=== PATIENT | female | born 1975 | race Caucasian/White ===

== ENCOUNTER 2016-07-25 19:46 | Emergency (ER) | payer BC ==
--- NOTE | 2016-07-25 20:33 | UC ---
Abdominal Pain Female HPI - HPI Summary HPI Summary: upper right abdomen pain for the past 2 weeks, insidious onset. No associated nausea or vomiting. Today, has an increase in pain after eating, and has felt unwell, low in energy , no fever. No vomiting, passes normal stools x 2. Bowel habit has been normal. NO fever, no recent illnesses. Did have a fall a couple of weeks ago while roller skating, but she believes that the pain began before that. - History of Current Complaint Chief Complaint: UCGI Stated Complaint: STOMACH PAIN Time Seen by Provider: 07/25/16 20:22 Hx Obtained From: Patient Hx Last Menstrual Period: Early Onset/Duration: Gradual Onset, Lasting Weeks - 2 Severity Initially: Moderate Severity Currently: Moderate Location: Discrete At: RUQ Radiates: No Character: Aching, Dull Aggravating Factor(s): Food Alleviating Factor(s): Position - worse with sitting. - Risk Factors Ectopic Risk Factor: IUD Use - just removed Mirena last year., Tubal Ligation Ovarian Torsion Risk Factor: Negative Allergies/Adverse Reactions: Allergies Allergy/AdvReac Type Severity Reaction Status Date / Time No Known Allergies Allergy Verified 07/25/16 20:18 PMH/Surg Hx/FS Hx/Imm Hx Previously Healthy: Yes - Surgical History Surgical History: Yes Surgery Procedure, Year, and Place: C-SECT X 3 [facility]; tubal ligation 10/2015 - Family History Known Family History: Positive: Other - no family history of gallbladder disease. 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: With Family Alcohol Use: Occasionally Substance Use Type: None Smoking Status (MU): Never Smoked Tobacco Review of Systems Constitutional: Negative Skin: Negative Eyes: Negative ENT: Negative Respiratory: Other - no recent illnesses. Cardiovascular: Negative Gastrointestinal: Abdominal Pain - some increase in indigestion, no meds used. Genitourinary: Negative Motor: Negative Neurovascular: Negative Musculoskeletal: Negative Neurological: Negative Psychological: Negative All Other Systems Reviewed And Are Negative: Yes Physical Exam Triage Information Reviewed: Yes Appearance: Well-Appearing, Thin Vital Signs: Initial Vital Signs Temp 99.3 F 07/25/16 20:09 Pulse 84 07/25/16 20:09 Resp 22 07/25/16 20:09 BP 130/87 07/25/16 20:09 Vital Signs Reviewed: Yes Eyes: Positive: Conjunctiva Clear ENT: Positive: Pharynx normal Dental Exam: Normal Neck: Positive: Supple, Nontender, No Lymphadenopathy Respiratory: Positive: Lungs clear, Normal breath sounds Cardiovascular: Positive: RRR, No Murmur Abdomen Description: Positive: Soft, Other: - tender lower margin of liver. Negative: No Organomegaly, CVA Tenderness (R), CVA Tenderness (L), Guarding Bowel Sounds: Positive: Present Musculoskeletal Exam: Normal Neurological Exam: Normal Psychological Exam: Normal Abd Pain Female Course/Dx - Course Course Of Treatment: continue acetaminophen or ibuprofen for pain. low fat diet. labs drawn to assess liver function - Differential Dx/Diagnosis Differential Diagnosis: Constipation, Ectopic , Gall Bladder Disease Provider Diagnoses: RUQ pain not yet diagnosed, most likely gallbladder disease. No acute abdomen. Discharge - Discharge Plan Condition: Stable Disposition: HOME Patient Education Materials: Biliary Colic (ED) Additional Instructions: The location and quality of your pain is suggestive of possible gallstones. Other alternative is that you have chest wall pain. The progression is more suggestive of gallbladder disease. Ensure that you are eating well and avoid high fat foods and fried foods. Liver function tests have been drawn today to look for abnormality. Please contact Dr. Hernandez on Wednesday to arrange an evaluation of your gallbladder and liver and to review the test results. The lab results will be available on the morning of 07/17/16; you will be called if results are abnormal , but you can also call for results.
[2016-07-25 20:38] VITALS: BP 130/87
[2016-07-26 12:52] LABS: Hematocrit 40 % (35-47); Hemoglobin 13.4 g/dl (12.0-16.0); Mean Corpuscular HGB Conc 33 g/dl (31-36); Mean Corpuscular Hemoglobin 29 pg (27-31); Mean Corpuscular Volume 87 fL (80-97); Mean Platelet Volume 9 um3 (7.4-10.4); Red Blood Count 4.64 10^6/ul (4.0-5.4); Red Cell Distribution Width 13 % (10.5-15); White Blood Count 8.5 10^3/ul (3.5-10.8)
[2016-07-26 12:58] LABS: Albumin 4.6 g/dL (3.2-5.2); BUN/Creatinine Ratio 18.5 (8-20); Calcium 9.5 mg/dL (8.6-10.3); EGFR African American 130.5 (>60); EGFR Non-African American 101.5 (>60); Globulin 2.1 g/dL (2-4); Potassium 3.4 mmol/L (3.5-5.0); Total Bilirubin 1.1 mg/dL (0.2-1.0); Total Protein 6.7 g/dL (6.4-8.9)
== END 2016-07-25 21:46 | disposition home or self-care (01) ==
LOC: UCCORT 19:46
DX: R10.11 Right upper quadrant pain (principal); Z32.02 Encounter for pregnancy test, result negative
CPT/HCPCS: 36415; 80053; 81025; 85025; 99211; G0463

== ENCOUNTER 2016-11-07 13:06 | Emergency (ER) | payer BC ==
[2016-11-07 13:15] VITALS: BP 122/82
--- NOTE | 2016-11-07 13:28 | UC ---
Respiratory Complaint HPI - HPI Summary HPI Summary: Patient states she has had a cough for about 10 days, currently c/o chest congestion with shortness of breath at times. No recent trauma, travel or OCP. Her children had cold last week and so did she but her cough persists and not gone yet so she came in . No fever. (+) wheeze and cough and hoarse voice [ End ] - History of Current Complaint Stated Complaint: COUGH Time Seen by Provider: 11/07/16 13:13 Hx Obtained From: Patient Hx Last Menstrual Period: Early ?: No Onset/Duration: Gradual Onset Timing: Constant Severity Initially: Moderate Severity Currently: Moderate Character: Cough: Nonproductive Aggravating Factors: Exertion Alleviating Factors: OTC Meds Associated Signs And Symptoms: Positive: Negative, Wheezing, URI, Nasal Congestion, Hoarseness, Sinus Discomfort. Negative: Fever - Risk Factors Pulmonary Embolism Risk Factors: Negative Cardiac Risk Factors: Negative Pseudomonas Risk Factors: Negative Tuberculosis Risk Factors: Negative - Allergies/Home Medications Allergies/Adverse Reactions: Allergies Allergy/AdvReac Type Severity Reaction Status Date / Time No Known Allergies Allergy Verified 07/25/16 20:18 PMH/Surg Hx/FS Hx/Imm Hx Previously Healthy: Yes Endocrine History Of: Denies: Diabetes Respiratory History Of: Denies: COPD GI/ History Of: Denies: Gastroesophageal Reflux Cancer History Of: Denies: Lung Cancer - Surgical History Surgical History: Yes Surgery Procedure, Year, and Place: C-SECT X 3 [facility]; tubal ligation 10/2015 - Family History Known Family History: Positive: Other - no family history of gallbladder disease. 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: With Family Alcohol Use: Occasionally Substance Use Type: None Smoking Status (MU): Never Smoked Tobacco Review of Systems Constitutional: Fatigue Skin: Negative Eyes: Negative ENT: Negative Respiratory: Cough, Other - wheeze Cardiovascular: Negative Gastrointestinal: Negative Genitourinary: Negative Motor: Negative Neurovascular: Negative Musculoskeletal: Negative Neurological: Negative Psychological: Negative All Other Systems Reviewed And Are Negative: Yes Physical Exam Triage Information Reviewed: Yes Appearance: Well-Appearing, No Pain Distress, Well-Nourished Vital Signs Reviewed: Yes Eye Exam: Normal ENT Exam: Normal Dental Exam: Normal Neck exam: Normal Neck: Positive: 1 Respiratory Exam: Normal Cardiovascular Exam: Normal Musculoskeletal Exam: Normal Neurological Exam: Normal Psychological Exam: Normal Skin Exam: Normal Respiratory Course/Dx - Course Course Of Treatment: appears viral at this time and will give albuterol inhaler for tessalon. and if sx persist then RTO / seek medical care. - Differential Dx/Diagnosis Differential Diagnosis/HQI/PQRI: Bronchitis, Lower Resp Infection, Sinusitis Provider Diagnoses: Viral URI Discharge - Discharge Plan Condition: Good Disposition: HOME Prescriptions: Albuterol Sulfate [Proair Respiclick] 1 puff IN Q4HR PRN #1 ml PRN Reason: Shortness Of Breath Benzonatate [Benzonatate 200 MG CAP] 200 mg PO TID #20 cap Patient Education Materials: Upper Respiratory Infection (ED) Referrals: Jaun Hernandez DO [Primary Care Provider] - 3 Days
== END 2016-11-07 13:41 | disposition home or self-care (01) ==
LOC: UCCORT 13:06
DX: J06.9 Acute upper respiratory infection, unspecified (principal)
CPT/HCPCS: 99212; G0463

== ENCOUNTER 2017-09-29 19:24 | Emergency (ER) | payer BC ==
[2017-09-29 21:44] VITALS: BP 129/75
--- NOTE | 2017-09-29 22:03 | UC ---
Skin Complaint HPI - HPI Summary HPI Summary: Pt c/o of sudden onset of burning, itchy skin on right mid upper back, that began on 09/24/17 an dnow has c/o of burning itchy, vessiculr rash that begins at right side mid upper back and extends to right mid sternum - History of Current Complaint Chief Complaint: UCSkin Time Seen by Provider: 09/29/17 21:58 Stated Complaint: SKIN COMPLAINT Hx Obtained From: Patient Hx Last Menstrual Period: 09/06/17 ?: No Onset/Duration: Gradual Onset, Lasting Days, Still Present, Worse Since - onset Skin Exposure Onset/Duration: Days Ago Timing: Constant Onset Severity: Mild Current Severity: Moderate Pain Intensity: 5 Location: Discrete Character: Pruritus, Redness, Raised, Painful Aggravating Factor(s): Touch Alleviating Factor(s): Nothing Associated Signs & Symptoms: Positive: Rash, Tenderness - Allergy/Home Medications Allergies/Adverse Reactions: Allergies Allergy/AdvReac Type Severity Reaction Status Date / Time No Known Allergies Allergy Verified 09/29/17 21:44 Review of Systems Constitutional: Negative Skin: Rash Eyes: Negative ENT: Negative Respiratory: Negative Cardiovascular: Negative Gastrointestinal: Negative Genitourinary: Negative Motor: Negative Neurovascular: Negative Musculoskeletal: Negative Neurological: Negative Psychological: Negative Is Patient Immunocompromised?: No All Other Systems Reviewed And Are Negative: Yes PMH/Surg Hx/FS Hx/Imm Hx Previously Healthy: Yes - Surgical History Surgical History: Yes Surgery Procedure, Year, and Place: C-SECT X 3 [facility]; tubal ligation 10/2015 - Family History Known Family History: Positive: Other - no family history of gallbladder disease. - Social History Occupation: Employed Full-time Lives: With Family Alcohol Use: Occasionally Substance Use Type: None Smoking Status (MU): Never Smoked Tobacco Have You Smoked in the Last Year: No Physical Exam Triage Information Reviewed: Yes Appearance: Well-Appearing Vital Signs: Initial Vital Signs Temp 98.6 F 09/29/17 21:38 Pulse 84 09/29/17 21:38 Resp 16 09/29/17 21:38 BP 129/75 09/29/17 21:38 Pulse Ox 100 09/29/17 21:38 Vital Signs Reviewed: Yes Eye Exam: Normal ENT Exam: Normal Neck exam: Normal Respiratory Exam: Normal Cardiovascular Exam: Normal Musculoskeletal Exam: Normal Neurological Exam: Normal Psychological Exam: Normal Skin: Positive: rashes - vessicular, along dermatome Course/Dx - Differential Diagnoses - Skin Complaint Differential Diagnoses: Varicella Zoster - Diagnoses Provider Diagnoses: shingles Discharge - Sign-Out/Discharge Documenting (check all that apply): Discharge - Discharge Plan Condition: Stable Disposition: HOME Prescriptions: ValACYclovir (*) [Valtrex 1 GM(*)] 1 gm PO Q8H #21 tab Patient Education Materials: Shingles (ED) Referrals: Jaun Hernandez DO [Primary Care Provider] - - Billing Disposition and Condition Condition: STABLE Disposition: HOME
== END 2017-09-29 22:17 | disposition home or self-care (01) ==
LOC: UCCORT 19:24
DX: B02.9 Zoster without complications (principal)
CPT/HCPCS: 99212; G0463